=== PATIENT | female | born 1955 | race Caucasian/White ===

== ENCOUNTER → 2017-03-05 | Outpatient (CLI) | payer MEDICARE, BC ==
[~2017-03-05] MED LIST: ACETAMINOPHEN325 MG PO; ACIDOPHILUS1 EACH PO; ACTOS PO; ACTOS15 MG PO; AMBIEN CR PO; AMPYRA10 MG PO; ASPIRIN81 M2 PO; AUBAGIO14 MG PO; B COMPLEX1 CA1 PO; BACTRIM DS TABL1 TAB PO; CALAZIME P113 GM OIN EXT; CERTAGEN PO; CLONAZEPAM0.5 MG PO; COLACE1 SUPP.RE1 PO; CRESTOR PO; DAILY VALUE1 EACH PO; DEMADEX PO; DESYREL300 MG PO; DETROL LA PO; DETROL PO; DURICEF500 MG PO; ESCITALOPRAM OX10 MG PO; FLEET ENEMA133 M1 PR; GABAPENTIN300 MG PO; GENTLE LAXATIVE10 MG RC; GLUCOPHAGE850 MG PO; HYDROCODON-ACE1 EAC7 PO; HYDROCORTISONE CREAM; IRON1 TAB PO; KLONOPIN PO; LEXAPRO PO; LEXAPRO20 MG PO; LIVALO2 MG PO; LORTAB 10/500 T1 TAB PO; METOPROLOL TAR25 MG; MILK OF MAGNESIA PO; MINOCIN100 M1 PO; MINOCYCLINE HC100 M1 PO; MIRALAX17 GM PO; MIRTAZAPINE45 MG PO; MOBIC PO; MODAFINIL200 MG PO; MULTIGEN CAPLET1 TAB PO; MYRBETRIQ50 MG PO; NEURONTIN PO; NEURONTIN300 MG PO; NOVOLOG100 U/ML SUBQ; NUVIGIL150 MG PO; NYSTOP; OXYCONTIN PO; OXYCONTIN20 MG PO; OXYCONTIN60 MG PO; PANTOPRAZOLE SO40 MG PO; PHENERGAN25 MG PO; PRANDIN0.5 MG PO; PRANDIN2 MG PO; PROMETHAZINE HC25 MG PO; PROTONIX PO; PROVIGIL100 MG PO; PROZAC40 M1 PO; REMERON PO; REMERON45 MG PO; SOMA PO; SPECTAZOLE15 GM TP; SULINDAC150 MG PO; TIZANIDINE HCL2 MG PO; TRAZODONE HCL150 MG PO; TRAZODONE PO; URIBEL CAPSULE1 EAC1 PO; VENLAFAXINE HC225 MG PO; VITAMIN D31000 UNI1 PO; WARFARIN SODIUM3 MG PO; ZANAFLEX; ZANAFLEX2 MG PO; ZOLPIDEM TARTRAT5 MG PO; [UNRECOGNIZED DRUG - OTHER] PO; [UNRECOGNIZED DRUG - OTHER] PO
--- NOTE | ~2017-03-05 | MY29 ---
[facility] A Service of [facility] RADIOLOGY TEXT RESULTS PATIENT: JASMYN WEBBER LOCATION: [facility] : 55 UNIT #: [id number] AGE: [address]: Aaron Simpson MD SEX: F ORDER DR: [id number] [facility] [address]. [place], [place] [address] [id number] O MR#: [id number] Acc #: [id number] NAME: JASMYN WEBBER : 1955 SEX: F STUDY DATE/TIME: 03/05/2017 13:29 UNIT: [facility] ROOM: STUDY DESCRIPTION: MY SOHAN SCREENING W/ CAD BILAT Attending Physician: Aaron Simpson M.D. Ordering Physician: Aaron Simpson M.D. Primary Care Physician: Aaron Simpson M.D. MEDICAL IMAGING REPORT This report is preliminary unless electronic signature is present EXAM Digital screening mammogram, 03/05/2017, [facility]. HISTORY 61-year-old woman no risk elevation. Several prior bilateral breast biopsies. Annual screen. COMPARISON Mammograms 01/13/2016. FINDINGS Digital imaging of each breast was completed utilizing a two-view examination of each breast in craniocaudal and mediolateral-oblique projections. Review and interpretation of digital mammograms include a second review in conjunction with FDA-approved CAD device. There is a normal parenchymal presentation bilaterally consistent with the patient's age. There are no breast masses imaged and no parenchymal asymmetry is visualized. There are no suspicious microcalcifications and I see no focal architectural disturbance. IMPRESSION Negative screening digital mammogram. One-year followup recommended. Patients over the age of 40 are entered into a reminder system with target due date for the next mammogram. A result letter will also be sent to the patient. BIRADS: 1 Negative ADDENDUM Breast parenchyma is fatty replaced. [facility] A Service of [facility] RADIOLOGY TEXT RESULTS PATIENT: JASMYN WEBBER LOCATION: [facility] : 55 UNIT #: [id number] AGE: [address]: Aaron Simpson MD SEX: F ORDER DR: Dictated by... Kaushal Gilliam M.D. THIS IS AN ELECTRONICALLY VERIFIED REPORT Kaushal Gilliam M.D. at 03/08/2017 8:08 AM THANH/caity TD: 03/05/2017 16:57 JOB #: [id number] MEDICAL IMAGING REPORT Page 1 of 1 COPY
== END | disposition home or self-care (01) ==
LOC: SMAM 02-19 10:30 → CWCC 13:05 → SMAM 13:15
DX: Z12.31 Encounter for screening mammogram for malignant neoplasm of breast (principal); Z98.890 Other specified postprocedural states
CPT/HCPCS: G0202